=== PATIENT | female | born 1995 | race Caucasian/White ===

== ENCOUNTER 2019-03-06 16:15 | Emergency (ER) | payer MEDICAID ==
[~2019-03-06] VITALS: Ht 172.7 cm; Wt 63.0 kg
[2019-03-06 16:21] VITALS: BP 111/72
[2019-03-06] MEDS ORDERED: METH-360 PO (17:13)
--- NOTE | 2019-03-06 17:23 | NUR ---
BACK FROM XRAY
[2019-03-06] MEDS ORDERED: ketorolac tromethamine 15mg/ml inj. IM ONE (17:25)
[2019-03-06] MEDS ORDERED: orphenadrine citrate 60mg/2ml inj. IM ONE (17:25)
== END 2019-03-06 17:54 | disposition home or self-care (01) ==
LOC: ER 16:16
DX: S20.211A Contusion of right front wall of thorax, initial encounter (principal); S30.1XXA Contusion of abdominal wall, initial encounter; W50.0XXA Accidental hit or strike by another person, initial encounter; Y93.89 Activity, other specified; Y92.89 Other specified places as the place of occurrence of the external cause; Y99.9 Unspecified external cause status
CPT/HCPCS: 71100; 76705; 96372; 99284; J1885; J2360

== ENCOUNTER 2019-09-09 14:27 | Emergency (ER) | payer MEDICAID, OTHER ==
[~2019-09-09] VITALS: Ht 172.7 cm; Wt 72.7 kg
[~2019-09-09 14:27] MED LIST: METH-360 PO
[2019-09-09 14:57] VITALS: BP 97/58
[2019-09-09 16:40] LABS: BASOPHILS % (AUTO) 0.3 % (0-1); EOSINOPHILS # (AUTO) 0.1 X10'3 (0-0.9); EOSINOPHILS % (AUTO) 0.9 % (0-6); HEMOGLOBIN 13.3 g/dl (12.0-16.0); LYMPHOCYTES # (AUTO) 2.1 X10'3 (1.1-4.8); LYMPHOCYTES % (AUTO) 28.6 % (21-51); MEAN CORPUSCULAR HEMOGLOBIN 29.7 PG (27.0-31.0); MEAN CORPUSCULAR HGB CONC 33.3 g/dL (33.0-36.5); MEAN CORPUSCULAR VOLUME 89.1 FL (78-98); MEAN PLATELET VOLUME 10.1 FL (7.4-10.4); MONOCYTES # (AUTO) 0.7 X10'3 (0-0.9); MONOCYTES % (AUTO) 9.3 % (2-12); NEUTROPHILS # (AUTO) 4.4 X10'3 (1.8-7.7); NEUTROPHILS % (AUTO) 60.9 % (42-75); PLATELET COUNT 209 X10'3 (140-440); RED BLOOD COUNT 4.49 X10'6 (4.20-5.60); RED CELL DISTRIBUTION WIDTH 12.6 % (11.5-14.5); WHITE BLOOD COUNT 7.2 X10'3 (4.5-11.0)
== END 2019-09-09 16:42 | disposition home or self-care (01) ==
LOC: ER 14:27
DX: N93.9 Abnormal uterine and vaginal bleeding, unspecified (principal); Z79.899 Other long term (current) drug therapy
CPT/HCPCS: 36415; 85025; 99283

== ENCOUNTER 2019-12-16 10:46 | Emergency (ER) | payer MEDICAID ==
[~2019-12-16] VITALS: Ht 172.7 cm; Wt 68.2 kg
[2019-12-16 11:12] VITALS: BP 121/63
[2019-12-16] MEDS ORDERED: dexamethasone sod phosphate 10mg/ml inj PO STA (11:34)
== END 2019-12-16 12:33 | disposition home or self-care (01) ==
LOC: ER 10:47
DX: J06.9 Acute upper respiratory infection, unspecified (principal); R05 Cough; Z20.828 Contact with and (suspected) exposure to other viral communicable diseases; Z72.89 Other problems related to lifestyle; Z79.899 Other long term (current) drug therapy
CPT/HCPCS: 36415; 87502; 87503; 87635; 99283; J1100

== ENCOUNTER 2019-12-26 21:36 | Emergency (ER) | payer MEDICAID ==
[~2019-12-26] VITALS: Ht 172.7 cm; Wt 68.2 kg
[2019-12-26 21:48] VITALS: BP 96/63
[2019-12-26] MEDS ORDERED: AMOX-117 PO (23:32)
[2019-12-26] MEDS ORDERED: amox tr/potassium clavulanate 875/125mg TAB PO ONE (23:35)
== END 2019-12-26 23:43 | disposition home or self-care (01) ==
LOC: ER 21:37
DX: J06.9 Acute upper respiratory infection, unspecified (principal); H92.02 Otalgia, left ear; R06.02 Shortness of breath; Z72.89 Other problems related to lifestyle; Z79.2 Long term (current) use of antibiotics; Z79.899 Other long term (current) drug therapy
CPT/HCPCS: 99283

== ENCOUNTER 2020-01-02 14:13 | Emergency (ER) | payer MEDICAID ==
[~2020-01-02] VITALS: Ht 172.7 cm; Wt 76.3 kg
[~2020-01-02 14:13] MED LIST changes: +AMOX-117 PO
[2020-01-02 15:28] LABS: CLARITY,URINE CLEAR (Clear); COLOR,URINE STRAW (Yellow); GLUCOSE, URINE NEGATIVE (Neg); KETONES,URINE NEGATIVE (Neg); LEUKOCYTE ESTERASE ,URINE NEGATIVE (Neg); NITRITES, URINE NEGATIVE (Neg); OCCULT BLOOD,URINE NEGATIVE (Neg); PROTEIN,URINE NEGATIVE (Neg); UROBILINOGEN,URINE 0.2 E.U/dL (0.2-1.0)
[2020-01-02 15:29] LABS: URINE HCG POSITIVE (NEG)
[2020-01-02 15:30] LABS: UA COLLECTION TYPE CLN CATCH MIDSTREAM
[2020-01-02 15:46] LABS: BASOPHILS % (AUTO) 0.3 % (0-1); EOSINOPHILS # (AUTO) 0.1 X10'3 (0-0.9); EOSINOPHILS % (AUTO) 1.2 % (0-6); HEMATOCRIT 38.4 % (35.0-45.0); HEMOGLOBIN 12.8 g/dl (12.0-16.0); LYMPHOCYTES # (AUTO) 2.3 X10'3 (1.1-4.8); LYMPHOCYTES % (AUTO) 27.9 % (21-51); MEAN CORPUSCULAR HEMOGLOBIN 29.3 PG (27.0-31.0); MEAN CORPUSCULAR HGB CONC 33.5 g/dL (33.0-36.5); MEAN CORPUSCULAR VOLUME 87.6 FL (78-98); MEAN PLATELET VOLUME 10.1 FL (7.4-10.4); MONOCYTES # (AUTO) 0.7 X10'3 (0-0.9); MONOCYTES % (AUTO) 8.6 % (2-12); NEUTROPHILS # (AUTO) 5.2 X10'3 (1.8-7.7); PLATELET COUNT 218 X10'3 (140-440); RED BLOOD COUNT 4.38 X10'6 (4.20-5.60); RED CELL DISTRIBUTION WIDTH 12.3 % (11.5-14.5); WHITE BLOOD COUNT 8.4 X10'3 (4.5-11.0)
[2020-01-02 16:07] LABS: ALANINE AMINOTRANSFERASE 27 U/L (12-78); ALBUMIN/GLOBULIN RATIO 1.1 (1.1-1.5); ALKALINE PHOSPHATASE 44 IU/L (46-116); ANION GAP 7 (8-16); ASPARTATE AMINO TRANSFERASE 11 U/L (10-37); BILIRUBIN,TOTAL 0.4 MG/DL (0.1-1.0); BLOOD UREA NITROGEN 9 MG/DL (7-18); BUN/CREATININE RATIO 15.5 (6.6-38.0); CALCIUM 8.5 MG/DL (8.5-10.1); CHLORIDE 107 MMOL/L (99-107); CREATININE 0.58 MG/DL (0.40-0.90); GLUCOSE 81 MG/DL (70-104); POTASSIUM 3.9 MMOL/L (3.5-5.1); SODIUM 139 MMOL/L (135-145); TOTAL CARBON DIOXIDE 25.5 MMOL/L (24-32); TOTAL PROTEIN 7.6 G/DL (6.4-8.2); eGFR > 90 ML/MIN
[2020-01-02 16:16] LABS: BETA HCG,QUANTITATIVE 660 mIU/ml
[2020-01-02 17:59] LABS: RHEUM FACTOR QUAL REFLEX TITER NEGATIVE (Neg)
[2020-01-02] MEDS ORDERED: RHO(D) immune globulin 1,500 units (300 MCG) syringe IM ONE (18:05)
[2020-01-02 19:04] VITALS: BP 129/48
== END 2020-01-02 19:06 | disposition home or self-care (01) ==
LOC: ER 14:13
DX: O26.91 Pregnancy related conditions, unspecified, first trimester (principal); R10.30 Lower abdominal pain, unspecified; Z3A.01 Less than 8 weeks gestation of pregnancy; Z72.89 Other problems related to lifestyle; Z79.899 Other long term (current) drug therapy
CPT/HCPCS: 36415; 76801; 76817; 80053; 81003; 81025; 84702; 85025; 86430; 93976; 96372; 99284

== ENCOUNTER 2021-07-10 10:17 | Emergency (ER) | payer MEDICAID ==
[~2021-07-10] VITALS: Ht 175.3 cm; Wt 75.0 kg
[~2021-07-10 10:17] MED LIST changes: -AMOX-117 PO
[2021-07-10 10:52] LABS: BASOPHILS % (AUTO) 0.7 % (0-1); EOSINOPHILS # (AUTO) 0.1 X10'3 (0-0.9); EOSINOPHILS % (AUTO) 1.5 % (0-6); HEMATOCRIT 40.7 % (35.0-45.0); HEMOGLOBIN 13.6 g/dl (12.0-16.0); LYMPHOCYTES # (AUTO) 1.9 X10'3 (1.1-4.8); LYMPHOCYTES % (AUTO) 28.2 % (21-51); MEAN CORPUSCULAR HEMOGLOBIN 28.8 PG (27.0-31.0); MEAN CORPUSCULAR HGB CONC 33.3 g/dL (33.0-36.5); MEAN CORPUSCULAR VOLUME 86.5 FL (78-98); MEAN PLATELET VOLUME 9.9 FL (7.4-10.4); MONOCYTES # (AUTO) 0.4 X10'3 (0-0.9); MONOCYTES % (AUTO) 5.9 % (2-12); NEUTROPHILS # (AUTO) 4.2 X10'3 (1.8-7.7); NEUTROPHILS % (AUTO) 63.7 % (42-75); PLATELET COUNT 235 X10'3 (140-440); RED BLOOD COUNT 4.71 X10'6 (4.20-5.60); RED CELL DISTRIBUTION WIDTH 13.7 % (11.5-14.5); WHITE BLOOD COUNT 6.7 X10'3 (4.5-11.0)
[2021-07-10 11:07] LABS: ALANINE AMINOTRANSFERASE 22 U/L (12-78); ALBUMIN 3.9 G/DL (3.4-5.0); ALKALINE PHOSPHATASE 50 IU/L (46-116); ANION GAP 10 (8-16); ASPARTATE AMINO TRANSFERASE 16 U/L (10-37); BILIRUBIN,TOTAL 0.3 MG/DL (0.1-1.0); BLOOD UREA NITROGEN 18 MG/DL (7-18); BUN/CREATININE RATIO 20.5 (6.6-38.0); CALCIUM 8.2 MG/DL (8.5-10.1); CHLORIDE 104 MMOL/L (99-107); CREATININE 0.88 MG/DL (0.40-0.90); GLUCOSE 92 MG/DL (70-104); LIPASE 162 U/L (73-393); POTASSIUM 4.2 MMOL/L (3.5-5.1); SODIUM 139 MMOL/L (135-145); TOTAL CARBON DIOXIDE 24.9 MMOL/L (24-32); TOTAL PROTEIN 7.8 G/DL (6.4-8.2); eGFR 79 ML/MIN
[2021-07-10 11:19] LABS: CLARITY,URINE CLOUDY (Clear); COLOR,URINE YELLOW (Yellow); GLUCOSE, URINE NEGATIVE (Neg); KETONES,URINE NEGATIVE (Neg); LEUKOCYTE ESTERASE ,URINE NEGATIVE (Neg); NITRITES, URINE NEGATIVE (Neg); OCCULT BLOOD,URINE LARGE (Neg); PH,URINE 5.5 (4.8-8.0); PROTEIN,URINE NEGATIVE (Neg); UROBILINOGEN,URINE 0.2 E.U/dL (0.2-1.0)
[2021-07-10 11:22] LABS: UA COLLECTION TYPE CLN CATCH MIDSTREAM
[2021-07-10 11:24] LABS: SQUAMOUS EPITHELIAL CELL,UR MANY /LPF (FEW)
[2021-07-10 11:25] LABS: BACTERIA,URINE FEW /HPF (Neg); RBC,URINE TNTC /HPF (0-2)
[2021-07-10 11:26] LABS: MUCUS STRANDS FEW /LPF (Neg)
[2021-07-10 11:42] LABS: URINE HCG NEGATIVE (NEG)
--- NOTE | 2021-07-10 12:57 | NUR ---
US at bedside.
[2021-07-10] MEDS ORDERED: normal saline 1000ML IV soln IVB ONE (13:00)
[2021-07-10] MEDS ORDERED: ondansetron/PF 4mg/2ml inj IV ONE (13:00)
[2021-07-10] MEDS ORDERED: ONDA4TAB12 PO (13:25)
[2021-07-10 14:38] VITALS: BP 102/67
== END 2021-07-10 14:41 | disposition home or self-care (01) ==
LOC: ER 10:17
DX: N93.8 Other specified abnormal uterine and vaginal bleeding (principal)
CPT/HCPCS: 36415; 76856; 80053; 81001; 81025; 83690; 85025; 93976; 96374; 99284; J2405; J7030

== ENCOUNTER 2021-11-11 11:24 | Emergency (ER) | payer MEDICAID ==
[~2021-11-11] VITALS: Ht 175.3 cm; Wt 75.0 kg
[~2021-11-11 11:24] MED LIST changes: +ONDA4TAB12 PO
[2021-11-11 11:28] VITALS: BP 104/48
[2021-11-11] MEDS ORDERED: LIDOcaine 1% 30ml preserv. free vial IJ ONE (13:55)
[2021-11-11] MEDS ORDERED: TETanus/Pertussis (Acell)/Diphther VAC/PF (Tdap-Adult) 0.5ml syringe IMVAC ONE (13:55)
== END 2021-11-11 15:06 | disposition home or self-care (01) ==
LOC: ER 11:24
DX: S61.212A Laceration without foreign body of right middle finger without damage to nail, initial encounter (principal); W25.XXXA Contact with sharp glass, initial encounter; Y93.89 Activity, other specified; Y92.89 Other specified places as the place of occurrence of the external cause; Y99.8 Other external cause status
CPT/HCPCS: 12001; 73140; 90471; 90715; 99283; J3490; A6449